=== PATIENT | female | born 1990 | race Caucasian/White ===

== ENCOUNTER 2018-11-19 19:36 | Emergency (ER) | payer MEDICAID ==
[2018-11-19 19:37] VITALS: BMI 29.1
[2018-11-19 20:24] VITALS: RESP 18; TEMP 97.9
--- NOTE | 2018-11-19 20:28 | ED PDOC ---
Arrival/HPI - General Time Seen by Provider: 11/19/18 20:18 Historian: Patient - History of Present Illness Narrative History of Present Illness (Text): 11/19/18 20:28 Puja Mccray is a 28 year old female who presents to the Emergency department complaining of a headache today. Patient also complaining of a rash and some swelling to her scalp and face with associated pruritus. Patient denies any fever, chills, throat/tongue swelling, wheezing, abdominal pain, nausea, vomiting, neck pain, vision changes, dizziness, or any other complaints. Symptom Onset: Gradual Symptom Course: Unchanged Activities at Onset: Light Context: Home Past Medical History - Provider Review Nursing Documentation Reviewed: Yes - Infectious Disease Hx of Infectious Diseases: None - Tetanus Immunization Tetanus Immunization: Unknown - Reproductive Currently : No - Integumentary Hx Eczema: Yes Other/Comment: 2 dermatologists, 1 said Eczema, the other said no - Psychiatric Hx Substance Use: No - Surgical History Hx Section: Yes (1x) - Anesthesia Hx Anesthesia: Yes Hx Anesthesia Reactions: No Hx Malignant Hyperthermia: No - Suicidal Assessment Feels Threatened In Home Enviroment: No Family/Social History - Physician Review Nursing Documentation Reviewed: Yes Family/Social History: Unknown Family HX Smoking Status: Never Smoked Hx Alcohol Use: No Hx Substance Use: No Allergies/Home Meds Allergies/Adverse Reactions: Allergies No Known Allergies Allergy (Verified 02/17/18 19:30) Review of Systems - Physician Review All systems were reviewed & negative as marked: Yes - Review of Systems Constitutional: Normal. absent: Fevers Eyes: Normal ENT: Normal Respiratory: Normal. absent: SOB, Cough Cardiovascular: Normal. absent: Chest Pain Gastrointestinal: Normal. absent: Abdominal Pain, Diarrhea, Nausea, Vomiting Genitourinary Female: Normal. absent: Dysuria, Frequency, Hematuria, Urine Output Changes Musculoskeletal: Normal. absent: Back Pain, Neck Pain Neurological: Headache. absent: Dizziness Endocrine: Normal Hemo/Lymphatic: Normal Psychiatric: Normal Physical Exam Vital Signs Reviewed: Yes Vital Signs Temp Pulse Resp BP Pulse Ox 11/19/18 20:22 97.9 F 74 18 117/75 99 Temperature: Afebrile Blood Pressure: Normal Pulse: Regular Respiratory Rate: Normal Appearance: Positive for: Well-Appearing, Non-Toxic, Comfortable Pain Distress: None Mental Status: Positive for: Alert and Oriented X 3 - Systems Exam Head: Present: Atraumatic, Normocephalic, Swelling (Mild urticarial swelling to face and scalp) Pupils: Present: PERRL Extroacular Muscles: Present: EOMI Conjunctiva: Present: Normal Ears: Present: Normal, NORMAL TM, Normal Canal. No: Erythema, TM Bulging, Fluid, TM Perf Mouth: Present: Moist Mucous Membranes Pharnyx: Present: Normal. No: ERYTHEMA, TONSILS ENLARGED, Peritonsilar Swelling, Uvular Deviation, Muffled/Hoarse Voice, Strider, Soft Palate/Uvular Edema Nose (External): Present: Atraumatic Nose (Internal): Present: Normal Inspection Neck: Present: Normal Range of Motion. No: Meningeal Signs, MIDLINE TENDERNESS, Paraspinal Tenderness Respiratory/Chest: Present: Clear to Auscultation, Good Air Exchange. No: R espiratory Distress, Accessory Muscle Use Cardiovascular: Present: Regular Rate and Rhythm, Normal S1, S2. No: Murmurs Abdomen: No: Tenderness, Distention, Peritoneal Signs Back: Present: Normal Inspection Upper Extremity: Present: Normal Inspection. No: Cyanosis, Edema Lower Extremity: Present: Normal Inspection. No: Edema Neurological: Present: GCS=15, CN II-XII Intact, Speech Normal Skin: Present: Warm, Dry, Rashes (Eczematous rash to arm), Normal Color Psychiatric: Present: Alert, Oriented x 3, Normal Insight, Normal Concentration Medical Decision Making ED Course and Treatment: 11/19/18 20:28 Impression: 28 year old female complaining of headache. Also complaining of rash and some swelling to scalp and face. Plan: -- CT Head w/o contrast -- Benadryl -- Prednisone -- Reassess and disposition Prior Visits: Notes and results from previous visits were reviewed. Progress Notes: 11/19/18 21:40 CT Head: BRAIN No acute intraparenchymal hemorrhage. No mass lesion. No CT evidence for acute territorial infarct. No midline shift or extra-axial collections. VENTRICLES: No hydrocephalus. ORBITS: The orbits are unremarkable. SINUSES AND MASTOIDS: Bilateral ethmoid sinusitis. The paranasal sinuses and mastoid air cells are clear. BONES: No fracture. SOFT TISSUES: Unremarkable. IMPRESSION: Bilateral ethmoid sinusitis. No acute intracranial abnormality. Electronically signed on Nov 19, 2018 9:26:25 PM EST by: eDrrick Jerome M.D., ROBERTO Certified By [facility] & [facility] Fellowship Trained MRI and CT Specialist - RAD Interpretation Radiology Orders: 11/19/18 20:26 HEAD W/O CONTRAST [CT] Stat - Scribe Statement The provider has reviewed the documentation as recorded by the Luisibmarlee Soriano Provider Scribe Attestation: All medical record entries made by the Scribe were at my direction and personally dictated by me. I have reviewed the chart and agree that the record accurately reflects my personal performance of the history, physical exam, medical decision making, and the department course for this patient. I have also personally directed, reviewed, and agree with the discharge instructions and disposition. Disposition/Present on Arrival - Present on Arrival Any Indicators Present on Arrival: No History of DVT/PE: No History of Uncontrolled Diabetes: No Urinary Catheter: No History of Decub. Ulcer: No History Surgical Site Infection Following: None - Disposition Have Diagnosis and Disposition been Completed?: Yes Diagnosis: Eczematous dermatitis, Headache, Allergic reaction, Ethmoid sinusitis Disposition: HOME/ ROUTINE Disposition Time: 22:07 Patient Plan: Discharge Condition: GOOD Discharge Instructions (ExitCare): Sinusitis, Adult (DC), Eczema (Atopic Dermatitis) (DC), Sinus Headache (DC), Headache, Adult (DC) Additional Instructions: medication as prescribed/follow up in medical clinic this week Prescriptions: Amoxicillin/Clavulanate [Augmentin 875 MG-125 MG] 1 tab PO BID #20 tab DiphenhydrAMINE [Benadryl] 50 mg PO Q6 PRN #24 cap PRN Reason: Itching / Pruritus Ibuprofen [Motrin] 400 mg PO Q6 PRN #16 tab PRN Reason: Headache predniSONE [Prednisone] 40 mg PO DAILY #10 tab Referrals: [facility] [Outside] - Follow up with primary Devora Bone MD [Medical Doctor] - Follow up with primary
[2018-11-19] MEDS ORDERED: DiphenhydrAMINE 50 mg/ml Inj IM STA (20:30)
[2018-11-19 23:03] VITALS: BP 121/85; PULSE 75; O2SAT 100
--- NOTE | 2018-11-20 08:00 | CT ---
Date of service: 11/19/2018 PROCEDURE: CT HEAD WITHOUT CONTRAST. HISTORY: headache COMPARISON: None available. TECHNIQUE: Axial computed tomography images were obtained through the head/brain without intravenous contrast. Radiation dose: Total exam DLP = 875.33 mGy-cm. This CT exam was performed using one or more of the following dose reduction techniques: Automated exposure control, adjustment of the mA and/or kV according to patient size, and/or use of iterative reconstruction technique. FINDINGS: HEMORRHAGE: No intracranial hemorrhage. BRAIN: No mass effect or edema. No atrophy or chronic microvascular ischemic changes. VENTRICLES: Unremarkable. No hydrocephalus. CALVARIUM: Unremarkable. PARANASAL SINUSES: Unremarkable as visualized. No significant inflammatory changes. MASTOID AIR CELLS: Unremarkable as visualized. No inflammatory changes. OTHER FINDINGS: The report concurs with the preliminary [facility] report IMPRESSION: No acute intracranial findings
== END 2018-11-19 22:15 | disposition home or self-care (01) ==
LOC: ED 19:36
DX: J32.2 Chronic ethmoidal sinusitis (principal); R51 Headache; L30.9 Dermatitis, unspecified; T78.40XA Allergy, unspecified, initial encounter
CPT/HCPCS: 70450; 81025; 96372; 99285; J1200